=== PATIENT | male | born 1990 | race Asian ===

== ENCOUNTER 2024-10-25 15:42 | Emergency (ER) | payer SELFPAY ==
[2024-10-25 15:51] VITALS: BP 178/109
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
[2024-10-25] MEDS: MOTRIN 600 MG PO (19:53)
[2024-10-25] MEDS: FLEXERIL 10 MG PO (19:53)
[2024-10-25 19:55] VITALS: BMI 31.2
[2024-10-25 23:05] VITALS: BP 168/84
== END 2024-10-25 19:55 | disposition home or self-care (01) ==
LOC: EMR 15:42
PROVIDERS: EMERGENCY PHYSICIAN Student in an Organized Health Care Education/Training Program; FAMILY PHYSICIAN Internal Medicine
DX: S16.1XXA Strain of muscle, fascia and tendon at neck level, initial encounter (principal); M54.50 Low back pain, unspecified; V47.6XXA Car passenger injured in collision with fixed or stationary object in traffic accident, initial encounter; Y99.0 Civilian activity done for income or pay
CPT/HCPCS: 99284; 71101; 72110; 72125